=== PATIENT | female | born 1975 | race Caucasian/White ===

== ENCOUNTER 2018-09-28 20:15 | Emergency (ER) | payer MEDICAID ==
[~2018-09-28] VITALS: Ht 157.5 cm; Wt 104.3 kg
[~2018-09-28 20:15] MED LIST: AEROECLIPSE1 EACH; AZMACORT20 G1; DOXYCYCLINE 10100 MG PO; HYDROCODON-ACE1 EAC7; IBUPROFEN 200200 M1; PROAIR HFA8.5 GM
[2018-09-28 20:41] LABS: ABSOLUTE BASOPHILS 0.1 thou/uL (0.0-0.2); ABSOLUTE EOSINOPHILS 0.2 thou/uL (0.0-0.7); ABSOLUTE LYMPHOCYTES 2.3 thou/uL (0.8-5.3); ABSOLUTE MONOCYTES 0.9 thou/uL (0.0-1.2); ABSOLUTE NEUTROPHILS 10.7 thou/uL (1.6-8.1); BASOPHILS 0.6 %; EOSINOPHILS 1.2 %; HEMATOCRIT 39.9 % (37.0-47.0); HEMOGLOBIN 13.3 gm/dL (12.0-15.0); MCH 29.3 pg (26.0-34.0); MCHC 33.3 g/dL (28.0-37.0); MCV 87.9 fL (80.0-100.0); MONOCYTES 6.5 %; MPV 8.4 fl. (7.2-11.1); NUCLEATED RBCS 0 /100WBC; PLATELET COUNT* 335 thou/uL (150-400); POLYS 75.7 %; RBC 4.53 mil/uL (4.20-5.00); RDW-CV 14.6 % (10.5-14.5); WBC 14.2 thou/uL (4.0-11.0)
[2018-09-28] MEDS ORDERED: LISINOPRIL10 MG ×2 (20:41→20:42)
[2018-09-28] MEDS ORDERED: ATROVENT HFA14 GM (20:43)
[2018-09-28 20:49] LABS: ANION GAP 11 mmol/L (7-16); BUN 17 mg/dL (7-18); CALCIUM 9.1 mg/dL (8.5-10.1); CHLORIDE 100 mmol/L (98-107); CO2 27 mmol/L (21-32); CREATININE 1.7 mg/dL (0.6-1.3); GLUCOSE 319 mg/dL (70-99); POTASSIUM 4.2 mmol/L (3.5-5.1); SODIUM 138 mmol/L (136-145)
[2018-09-28] MEDS ORDERED: HYDROCHLOROTH12.5 M1 (20:50)
[2018-09-28] MEDS ORDERED: LANTUS100 UNIT/M (20:51)
[2018-09-28] MEDS ORDERED: HUMALOG100 UNIT/1 (20:51)
[2018-09-28 20:58] LABS: ALBUMIN 3.3 g/dL (3.4-5.0); ALKALINE PHOSPHATASE 99 U/L (46-116); LIPASE 77 U/L (73-393); SGOT 28 U/L (15-37); SGPT 49 U/L (30-65); TOTAL BILIRUBIN 0.5 mg/dL (<0.1-1.0); TOTAL PROTEIN 6.6 g/dL (6.4-8.2); TROPONIN-I LEVEL <0.06 ng/mL (<0.06)
[2018-09-28 20:59] LABS: URINE BLOOD NEGATIVE (Negative); URINE CLARITY CLEAR; URINE COLOR YELLOW; URINE GLUCOSE-RANDOM NEGATIVE (Negative); URINE KETONES TRACE (Negative); URINE LEUKOCYTES-REFLEX NEGATIVE (Negative); URINE NITRITE-REFLEX NEGATIVE (Negative); URINE PROTEIN NEGATIVE (Negative); URINE SPECIFIC GRAVITY >= 1.030 (1.005-1.030); URINE UROBILINOGEN 0.2 E.U./dl (0.2-1.0)
[2018-09-28 21:00] LABS: URINE BILIRUBIN 1+ (Negative)
[2018-09-28 21:01] LABS: ICTOTEST (BILI CONFIRMATORY) Negative (Negative)
[2018-09-28] MEDS ORDERED: METFORMIN HCL500 MG (21:02)
[2018-09-28] MEDS ORDERED: NORCO 5-325 TA1 EAC1 PO (22:13)
[2018-09-28 22:30] VITALS: BP 107/76
== END 2018-09-28 22:32 | disposition home or self-care (01) ==
LOC: M.ERS 20:15
PROVIDERS: Physician Assistant
DX: K76.0 Fatty (change of) liver, not elsewhere classified (principal); R16.1 Splenomegaly, not elsewhere classified; J98.6 Disorders of diaphragm; J45.909 Unspecified asthma, uncomplicated; E11.9 Type 2 diabetes mellitus without complications; Z79.4 Long term (current) use of insulin; Z88.6 Allergy status to analgesic agent; Z91.011 Allergy to milk products